=== PATIENT | male | born 1945 | race Caucasian/White ===

== ENCOUNTER 2023-03-02 09:39 | Outpatient (CLI) | payer MEDICARE, SELFPAY ==
--- NOTE | 2023-03-02 10:00 | ECG_ITS ---
Measurements Intervals [place] Rate: 55 P: 43 AL: 215 QRS: -10 QRSD: 106 T: 125 QT: 478 QTc: 458 Interpretive Statements SINUS BRADYCARDIA WITH MARKED SINUS ARRHYTHMIA WITH FIRST DEGREE AV BLOCK LEFT VENTRICULAR HYPERTROPHY AND ST-T CHANGE CANNOT RULE OUT SEPTAL INFARCT, AGE INDETERMINATE BASELINE ARTIFACT- I, II, III, AVR ABNORMAL ECG NO PREVIOUS ECG AVAILABLE FOR COMPARISON Electronically Signed On 03-02-2023 10:39:03 CDT by Branden Freitas D.O.
[2023-03-02 10:53] LABS: Hemoglobin 14.1 g/dL (14.0-18.0); Mean Platelet Volume 11.4 fl (7.4-10.4); Platelet Count Result 165 k/mm3 (150-375); Red Cell Distribution Width 13.7 % (11.5-14.5); White Blood Count 6.2 K/mm3 (4.5-10.0)
[2023-03-02 11:02] LABS: Appearance Urine Clear (Clear); Bacteria Urine None Seen /hpf; Bilirubin Urine Negative (Negative); Blood Urine Trace (Negative); Color Urine Yellow (Yellow); Glucose Urine UA 2+ mg/dL (Negative); Hyaline Casts Urine Present /lpf; Ketones Urine Negative (Negative); Leukocyte Esterase Ur Negative LEU/UL (Negative); Nitrate Urine Negative (Negative); Protein Urine 3+ mg/dL (Negative); RBC Urine 0-2 /hpf (0-2); Squamous Epithelial Cell Urine None seen /hpf (Few); Urobilinogen Urine 0.2 mg/dL (<2.0); WBC Urine 0-5 /hpf
[2023-03-02 11:03] LABS: Add Urine Microscopic? YES
[2023-03-02 11:04] LABS: Anion Gap 7 mmol/L (8-16); Blood Urea Nitrogen 37 mg/dL (9-20); Calcium 8.7 mg/dL (8.4-10.2); Carbon Dioxide 20 mmol/L (22-30); Chloride 113 mmol/L (98-107); Estimated Glomerular Filt Rate 30; Glucose 106 mg/dL (65-110); INR 0.9; Potassium 4.6 mmol/L (3.4-5.0); Sodium 140 mmol/L (137-145)
[2023-03-02 11:05] LABS: Partial Thromboplastin Time 27.2 SECONDS (22.3-36.8)
[2023-03-02 11:19] LABS: Hemoglobin A1C 5.8 % (<5.7)
== END 2023-03-02 09:40 | disposition home or self-care (01) ==
LOC: ANHSURGERY 09:47
PROVIDERS: PCP Internal Medicine Geriatric Medicine; Visit Provider Neurological Surgery
DX: M48.062 Spinal stenosis, lumbar region with neurogenic claudication (principal); Z01.818 Encounter for other preprocedural examination
CPT/HCPCS: 36415; 80048; 81001; 83036; 85027; 85610; 85730; 93005

== ENCOUNTER 2023-03-03 01:33 | Day surgery (SDC) | payer MEDICARE, SELFPAY ==
--- NOTE | 2023-02-25 13:26 | PC.NURSE ---
Report to the Outpatient Waiting Room, entrance under the green pavilion located off [facility], at time _0800 on date _03/03/23 . Planned Procedure Time: _1000 . Time changes happen often and if your time is changed the preop area will call you the afternoon before. - You and your visitor will be asked to self-screen and do not enter if you have any COVID symptoms. - A mask is optional within the hospital at this time. Patients may have clear liquids (water, carbonated beverages, clear teas, apple juice) until 3 hours prior to surgery with a maximum of 20 ounces. - No food from midnight until time of surgery - Infants may have breast milk until 4 hours before surgery, formula 6 hours prior to surgery. - Children will be allowed to drink immediately following surgery. If applicable, please bring a bottle or sippy cup to assist with drinking. Juice, water, soda, and popsicles are readily available. For infants on formula, please bring formula the day of surgery. Pacifiers are allowed. Take the following medications with a SIP of water the morning of surgery: ___AMLODIPINE,GABAPENTIN,ISOSORBIDE,METOPROLOL DO NOT STOP ANY OF YOUR OTHER PRESCRIPTION MEDICATIONS PRIOR TO SURGERY ?EXCEPT THE FOLLOWING Medications to discontinue per physician ___ELIQUIS HOLD 7 DAYS PRE OP PER DR RAYO. LAST DOSE 02/23/23. ALL VITAMINS 3 DAYS PRE OP.LAST DOSE 02/27/23 Please no make-up, nail maldivian, hairspray, perfume, deodorant, or body powder the day of surgery. No jewelry (including any body piercings) or valuables the day of surgery, leave them at home. Please take a shower or bath the night before, or the morning of, surgery with an antibacterial soap. Wear comfortable, loose fitting clothing. Children are encouraged to wear pajamas. - Jewelry must be removed prior to entering the operating room. Rings and piercings that are not removed may be cut off. - The hospital will not accept responsibility for valuables. - Please leave all valuables, including medications, at home the day of surgery. If you are going home after surgery, a licensed driver manager must drive you home. - NO public transportation without another adult if you receive anesthesia. - We recommend that an adult stay with you for 24 hours following discharge. - We also recommend that you do not drive, make important decision, drink alcoholic beverages, or take any drugs that were not prescribed by your health care provider for at least 24 hours after your discharge time. For Pediatric surgeries, we recommend two adults accompany the child home. Follow any additional instructions given to you from your surgeon. If you or anyone in your household have experienced Covid symptoms in the past week, please notify your surgeon or the nurse liaison at the phone number below for possible testing. Telephone instructions given to __PATIENT and asked if any additional questions and then verbalized understanding. Patient advised to call surgeon office or pre surgery nurse liaison [phone] if any additional questions.
[2023-02-25 13:41] VITALS: BMI 26.5
[2023-03-03] VITALS (16 sets, daily range): BP systolic 130–181; BP diastolic 50–98; PULSE 57–88; RESP 12–18; TEMP 36.1–36.8; O2SAT 97–100; BMI 26.2
--- NOTE | ~2023-03-03 | XR_ITS ---
EXAMINATION: XR fluoroscopy no charge DATE: 03/03/2023 12:13 INDICATION: L4-L5 lumbar laminectomy. TECHNIQUE: A single intraoperative fluoroscopic view of the lumbar spine was obtained. I was not pres ent. Fluoroscopy exposure time was 2 seconds. COMPARISON: None. FINDINGS: Instruments overlie the posterior elements at L4-L5. There is moderate lumbar spondylosis. IMPRESSION: 1. Moderate lumbar spondylosis. Reviewed, dictated and finalized at location A.
[2023-03-03] MEDS: LACTATED RINGERS 1,000 ML 30 ML IV CONT ×2 (08:55→12:00)
[2023-03-03 08:56] LABS: Glucose Point of Care 109 mg/dl (65-105)
--- NOTE | 2023-03-03 09:32 | WPDANESEPPF ---
Anes - Initial Pre Proc Eval Procedure: Operation Date: 03/03/23 10:00 Proposed Procedures p L4-5 Lumbar Laminectomy - Morteza Ya MD Date/Time: 03/03/23 09:32 Surgeon: Morteza Ya MD Pre Op Diagnosis: L4-5 stenosis Patient Data Age: 78 Gender: M Height: 1.78 m Weight: 83 kg Last Vital Signs Temp 36.1 C L 03/03/23 07:50 Pulse 60 03/03/23 07:50 Resp 18 03/03/23 07:50 BP 174/78 H 03/03/23 07:50 Pulse Ox 100 03/03/23 07:50 O2 Del Method Room Air 03/03/23 07:50 Allergies Allergy/AdvReac Type Severity Reaction Status Date / Time No Known Allergies Allergy Verified 03/03/23 08:11 Home Medications Medication Instructions Recorded Confirmed Type acetaminophen 325 mg capsule 325 mg PO Q6H PRN Pain 09/28/22 02/25/23 History (Tylenol) allopurinol 100 mg tablet 100 mg PO DAILY 09/28/22 02/25/23 History amlodipine 5 mg tablet 5 mg PO DAILY 09/28/22 03/03/23 History apixaban 5 mg tablet (Eliquis) 5 mg PO DAILY 09/28/22 03/03/23 History ezetimibe 10 mg tablet 10 mg PO DAILY 09/28/22 02/25/23 History finasteride 5 mg tablet 5 mg PO DAILY 09/28/22 02/25/23 History gabapentin 100 mg capsule 100 mg PO DAILY 09/28/22 03/03/23 History glipizide 5 mg tablet 5 mg PO DAILY 09/28/22 02/25/23 History isosorbide dinitrate 30 mg tablet 30 mg PO BID 09/28/22 03/03/23 History metoprolol succinate 100 mg 100 mg PO DAILY 09/28/22 03/03/23 History tablet,extended release 24 hr pioglitazone 30 mg tablet 30 mg PO DAILY 09/28/22 02/25/23 History tamsulosin 0.4 mg capsule 0.4 mg PO DAILY 09/28/22 02/25/23 History multivitamin 1 tablet PO DAILY 02/25/23 03/03/23 History Laboratory Tests 03/03/23 08:54 POC Capillary Glucose 109 H mg/dl (65-105) Patient hx anesthesia problems: none Family hx anesthesia problems: none Results Review: All pre-operative results and documents have been reviewed as part of the pre-operative evaluation. [facility] Past Medical History Medical History (Updated 03/03/23 @ 09:33 by John Reno MD) CAD (coronary artery disease) PVD (peripheral vascular disease) Surgical History Surgical History (Updated 03/03/23 @ 09:32 by John Reno MD) History of coronary artery stent placement Hx of CABG Social History Social History Social History: pt did not report any social/medical/surgical/family history to us. Smoking status: Never smoker Living arrangements: alone Spiritual care concerns: No Anes - Eval Final PreProcedure Day of Procedure 03/03/23 09:32 Patient weight: overweight Heart: regular rate and rhythm Lungs: clear to auscultation Airway: Mallampati scale class II Neurological: alert and oriented Last oral intake: >/= 8 hours ASA classification: IV Emergent: no Anesthetic plan: proceed Anesthesia type and monitoring: general ETT and standard monitoring Results Review: All pre-operative results and documents have been reviewed as part of the pre-operative evaluation. Informed Consent: The patient's anesthetic plan and its attendant risks and benefits were discussed with the patient/family/POA. Questions were solicited and answers provided to the satisfaction of the patient/family/POA.
--- NOTE | 2023-03-03 10:28 | PM.IMHP ---
H&P: HPI History of Present Illness Date/Time: 03/03/23 10:28 Chief Complaint: Neurogenic claudication Narrative: Fausto is a 78-year-old gentleman with back and leg pain with claudicatory nature related to stenosis at L4-5 presents for laminectomy. He has not changed appreciably since we last saw him. He does not have any new bowel or bladder difficulty or other constitutional problems. He does not have specific muscle group weakness or dermatomal numbness. Review of Systems Review of Systems: Patient denies shortness of breath, cough, fever, chills, nausea, vomiting, weight loss, weight gain, chest pain, dysuria. He has back and leg pain and claudication as above. His review of systems is otherwise negative on 12 systems except as noted elsewhere. [facility] Past Medical History Medical History (Updated 03/03/23 @ 09:33 by John Reno MD) CAD (coronary artery disease) PVD (peripheral vascular disease) Surgical History Surgical History (Updated 03/03/23 @ 09:32 by John Reno MD) History of coronary artery stent placement Hx of CABG Social History Social History Social History: pt did not report any social/medical/surgical/family history to us. Smoking status: Never smoker Living arrangements: alone Spiritual care concerns: No Meds Home Medications and Allergies Home Medications Medication Instructions Recorded Confirmed Type acetaminophen 325 mg capsule 325 mg PO Q6H PRN Pain 09/28/22 02/25/23 History (Tylenol) allopurinol 100 mg tablet 100 mg PO DAILY 09/28/22 02/25/23 History amlodipine 5 mg tablet 5 mg PO DAILY 09/28/22 03/03/23 History apixaban 5 mg tablet (Eliquis) 5 mg PO DAILY 09/28/22 03/03/23 History ezetimibe 10 mg tablet 10 mg PO DAILY 09/28/22 02/25/23 History finasteride 5 mg tablet 5 mg PO DAILY 09/28/22 02/25/23 History gabapentin 100 mg capsule 100 mg PO DAILY 09/28/22 03/03/23 History glipizide 5 mg tablet 5 mg PO DAILY 09/28/22 02/25/23 History isosorbide dinitrate 30 mg tablet 30 mg PO BID 09/28/22 03/03/23 History metoprolol succinate 100 mg 100 mg PO DAILY 09/28/22 03/03/23 History tablet,extended release 24 hr pioglitazone 30 mg tablet 30 mg PO DAILY 09/28/22 02/25/23 History tamsulosin 0.4 mg capsule 0.4 mg PO DAILY 09/28/22 02/25/23 History multivitamin 1 tablet PO DAILY 02/25/23 03/03/23 History Allergies Allergy/AdvReac Type Severity Reaction Status Date / Time No Known Allergies Allergy Verified 03/03/23 08:11 Vital Signs Vital Signs - 24 hr 03/03/23 07:50 Temperature 96.9 F L Pulse Rate 60 Respiratory Rate 18 Blood Pressure 174/78 H Pulse Oximetry 100 Oxygen Delivery Room Air Exam Narrative: Strength is 5/5 in all muscle groups of the bilateral lower extremities. Sensation is intact to light touch throughout the lower extremities. Breathing is nonlabored Regular rate and rhythm Assessment and Plan Assessment and plan (1) Lumbar stenosis with neurogenic claudication: Code(s): M48.062 - Spinal stenosis, lumbar region with neurogenic claudication Status: Acute Plan Fausto is a 78-year-old gentleman who presents for L4-5 laminectomy to treat spinal stenosis causing neurogenic claudication. I described to him again that operation, its risks, potential benefits, the operative and postoperative course in detail and answered all his questions personally. He indicates understanding and elects to proceed with that operation.
--- NOTE | 2023-03-03 10:30 | WPDHPUPDATE1 ---
History and Physical Update Update Date/Time: 03/03/23 10:30 History and Physical has been reviewed, including an updated exam of the patient. There are NO changes in the patient's condition. Risks, benefits, and alternatives have been discussed and questions answered. Patient agrees to proceed with procedure.
[2023-03-03] MEDS: ceFAZolin 2 GM/D5W 50 ML 2 GM/50 ML BAG IVPB (10:37)
[2023-03-03] MEDS: LIDO 1%/EPINEPHRINE 1:100,000 20 ML VIAL 10 ML INFILTRATE (11:07)
--- NOTE | 2023-03-03 11:59 | WPDHPUPDATE1 ---
History and Physical Update Update Date/Time: 03/03/23 11:59 History and Physical has been reviewed, including an updated exam of the patient. There are NO changes in the patient's condition. Risks, benefits, and alternatives have been discussed and questions answered. Patient agrees to proceed with procedure.
--- NOTE | 2023-03-03 12:00 | W.PM.PROC2 ---
Procedure Note - Detailed Date of Procedure 03/03/23 Pre-op Diagnosis L4-5 stenosis Post-op Diagnosis Same Procedure Performed L4-5 laminectomy Surgeon Morteza Ya MD Anesthesia General Description of Procedure Patient was brought to the operating room in the supine position, was sedated, intubated and placed under general anesthesia in routine fashion. He was then turned into the prone position on a [place] frame. The of operation on his back was examined, marked for incision, prepped and draped in routine sterile fashion. Incision was marked over the L4-L5 spinous processes in the midline. This area was injected with 0.5% lidocaine with [id number] epinephrine. Intravenous antibiotics given prior to incision. Incision was made with a 10 blade scalpel down to the lumbodorsal fascia. A subperiosteal dissection of the muscle soft tissue away from spinous process and lamina at L4-5 was performed with a subperiosteal elevator and Bovie cautery. A verifying x-rays obtained to verify the level of operation. The L4 spinous process was removed with a Bharath rongeur. Bottom of the L5 spinous process was also removed with a Bharath rongeur. A Midas Sadi drill with an Xenia bit was used to resect the bone until the soft contents of the canal were encountered. Curved curettes were used to define a plane with during Kerrison punches were used to remove ligament in the midline to the dura was encountered. In the lateral recess bilaterally curved curettes were used to define a plane with the dura and Kerrison punches were used to remove overgrown bone and ligament. A Midas Sadi drill with a match stick bit was used to resect additional medial facet to facilitate access to the lateral recess. These maneuvers were performed until a dental instrument could be placed in the lateral recess to confirm lack compression. The wound was copiously irrigated with bacitracin irrigation all bleeding stopped with bipolar Bovie cautery and Gelfoam thrombin powder. A medium Hemovac drain was left in the subfascial position buried at the inferior right incision. The wound was then closed in layered fashion with 2-0 Vicryl interrupted sutures in the lumbodorsal fascia and Justin's layer. 3-0 Vicryl buried interrupted sutures placed in the dermis and skin was closed with a running 4-0 Monocryl subcuticular stitch and dressed with Dermabond. The patient was loud wake up in the operating room and was taken to the recovery room in stable condition. There were no immediate complications of this operation. All counts were reported correct in the case. Blood loss was 25 cc. The patient was neurologically at his baseline postoperatively. The CPT codes: 50033, 59224 Estimated Blood Loss 25 IV Fluids 1,000 Drains Yes Complications None Condition Stable Disposition PACU [facility] Billing Surgery - Charge Forward: Surgery Billing
[2023-03-03 12:24] LABS: Glucose Point of Care 103 mg/dl (65-105)
--- NOTE | 2023-03-03 14:07 | SUR.PHASEI ---
1345: Patient meets PACU discharge criteria, unit bed unavailable at this time. Patient placed in extended recovery status.
--- NOTE | 2023-03-03 15:27 | ADMGEN ---
This patient, Fausto Glass, was admitted to Medical Room 253-01. Patient/family oriented to hospital policies and general routines including ID bracelet, bed and alarms, visiting hours, pain management, procedures, bathroom and other care routines, personal items, smoking policy, room service/diet, and visiting hours. Information on how to activate the Rapid Response Team has been discussed. Patient/Family are encouraged to report perceived risks to care and to ask questions if they do not understand what they are told or what they should do.
[2023-03-03] MEDS: ISOSORBIDE DINITRATE 10 MG TABLET 30 MG PO (17:46)
[2023-03-03] MEDS: KCL 20 MEQ/D5/0.45% SOD CHL 1,000 ML 100 ML IV CONT (17:46)
[2023-03-03] MEDS: ceFAZolin 1 GM/NS 50 ML 1 GM/50 ML BAG IVPB (17:47)
[2023-03-03] MEDS: HYDROcodone/acetaminophen (*CRX) 5-325 MG TABLET 1 TAB PO (19:58)
[2023-03-03] MEDS: DOCUSATE SODIUM 100 MG CAPSULE PO (21:19)
[2023-03-04 00:55] VITALS: BP 129/60; PULSE 71; RESP 14; TEMP 36.8; O2SAT 96
[2023-03-04] MEDS: ceFAZolin 1 GM/NS 50 ML 1 GM/50 ML BAG IVPB ×2 (01:30→10:28)
[2023-03-04 04:19] VITALS: BP 143/62; PULSE 60; RESP 16; TEMP 36.4; O2SAT 99
[2023-03-04] MEDS: CYCLOBENZAPRINE HCL 10 MG TABLET PO (04:38)
--- NOTE | 2023-03-04 08:12 | WPDANESPN ---
Anes - Prog Note Post-Op Date/Time: 03/04/23 08:12 Cardiovascular status: normal Respiratory status: normal Airway patency: baseline Mental status: baseline Post-Op hydration status: normal Vital Signs: Last Vital Signs Temp 36.4 C 03/04/23 04:19 Pulse 60 03/04/23 04:19 Resp 16 03/04/23 04:19 BP 143/62 H 03/04/23 04:19 Pulse Ox 99 03/04/23 04:19 O2 Del Method Room Air 03/03/23 14:45 O2 Flow Rate 10 03/03/23 12:15 Pain Score (VAS): no complaints I/O: Intake & Output 03/03/23 03/04/23 03/04/23 23:59 07:59 15:59 Intake Total 290 250 Output Total 300 650 Balance -10 -400 03/03/23 03/03/23 08:54 12:21 POC Capillary Glucose 109 H 103 Post-procedural complaints: none Patient Feedback: Patient satisfied with anesthetic care.
[2023-03-04] MEDS: allopurinoL 100 MG TABLET PO (08:26)
[2023-03-04] MEDS: amLODIPine BESYLATE 5 MG TABLET PO (08:26)
[2023-03-04] MEDS: DOCUSATE SODIUM 100 MG CAPSULE PO (08:27)
[2023-03-04] MEDS: EZETIMIBE 10 MG TABLET PO (08:27)
[2023-03-04] MEDS: glipiZIDE 5 MG TABLET PO (08:28)
[2023-03-04] MEDS: ISOSORBIDE DINITRATE 10 MG TABLET 30 MG PO (08:28)
[2023-03-04] MEDS: FINASTERIDE 5 MG TABLET PO (08:28)
[2023-03-04] MEDS: GABAPENTIN 100 MG CAPSULE PO (08:28)
[2023-03-04 08:29] VITALS: PULSE 61
[2023-03-04] MEDS: METOPROLOL SUCCINATE EXT REL 100 MG TABCR PO (08:29)
[2023-03-04] MEDS: PIOGLITAZONE HCL 30 MG TABLET PO (08:29)
[2023-03-04] MEDS: TAMSULOSIN HCL 0.4 MG CAPSULE PO (08:30)
[2023-03-04] MEDS: HYDROcodone/acetaminophen (*CRX) 10-325 MG TABLET 1 TAB PO (08:30)
[2023-03-04 09:55] VITALS: BP 133/53; PULSE 66; RESP 18; TEMP 36.4; O2SAT 96
[2023-03-04 14:10] VITALS: BP 132/49; PULSE 60; RESP 18; TEMP 36.6; O2SAT 96
== END 2023-03-04 16:30 | disposition home or self-care (01) ==
LOC: ANHSURGERY 07:39 → ANH2MED 15:17
PROVIDERS: PCP Internal Medicine Geriatric Medicine; Visit Provider Neurological Surgery
PROC: (CPT 63005; principal; 2023-03-03 10:00)
DX: M48.062 Spinal stenosis, lumbar region with neurogenic claudication (principal); I25.10 Atherosclerotic heart disease of native coronary artery without angina pectoris; I73.9 Peripheral vascular disease, unspecified; Z95.5 Presence of coronary angioplasty implant and graft; Z95.1 Presence of aortocoronary bypass graft; Z79.01 Long term (current) use of anticoagulants; Z79.84 Long term (current) use of oral hypoglycemic drugs
CPT/HCPCS: 63047; 82948; 97161; 97165; 97535; 99199; A9270; J0690; J1100; J2405; J2704; J3010; J3480; J7120